=== PATIENT | male | born 1990 | race Caucasian/White ===

== ENCOUNTER 2024-05-26 15:39 | Emergency (ER) | payer OTHER ==
[~2024-05-26] VITALS: Ht 182.9 cm; Wt 90.7 kg
[2024-05-26] MEDS ORDERED: NEOM10DR11 LEFT EAR (16:55)
[2024-05-26] MEDS ORDERED: AMOX500C2 PO (16:55)
[2024-05-26 17:03] VITALS: BP 155/81; O2SAT 98
== END 2024-05-26 17:04 | disposition home or self-care (01) ==
LOC: ER 15:45
DX: S00.412A Abrasion of left ear, initial encounter (principal); Z79.899 Other long term (current) drug therapy; W44.8XXA Other foreign body entering into or through a natural orifice, initial encounter; Y93.89 Activity, other specified; Y92.89 Other specified places as the place of occurrence of the external cause; Y99.8 Other external cause status
CPT/HCPCS: A4606; A4663